=== PATIENT | female | born 1965 | race Caucasian/White ===

== ENCOUNTER → 2017-08-15 | Outpatient (CLI) | payer OTHER | LOC: M LRY 16:18 | DX: R10.31 Right lower quadrant pain (principal) | CPT/HCPCS: 74018; 87186 ==

== ENCOUNTER → 2017-08-15 | Outpatient (REF) | payer OTHER | LOC: M SFHCLERA 16:43 | DX: N30.01 Acute cystitis with hematuria (principal) ==

== ENCOUNTER → 2017-08-25 | Outpatient (REF) | payer OTHER ==
[2017-08-25 18:47] LABS: AMORPHOUS SEDIMENT MODERATE (NEGATIVE); APPEARANCE, URINE HAZY (CLEAR); BACTERIA, URINE AUTO NEGATIVE (NEGATIVE); BILIRUBIN, URINE AUTO NEGATIVE (NEGATIVE); BLOOD, URINE BLOOD NEGATIVE (NEGATIVE); COLOR, URINE YELLOW (YELLOW); GLUCOSE, URINE (UA) AUTO NEGATIVE (NEGATIVE); KETONE, URINE AUTO NEGATIVE (NEGATIVE); LEUKOCYTE ESTERASE, URINE AUTO 1+ (NEGATIVE); NITRITE, URINE AUTO NEGATIVE (NEGATIVE); PROTEIN, URINE AUTO NEGATIVE (NEGATIVE); RBC, URINE AUTO 2 /HPF (0-3); SPECIFIC GRAVITY URINE AUTO 1.005 (1.002-1.035); SQUAMOUS EPITHELIAL CELL UR AU 4 /HPF (0-6); UROBILINOGEN, URINE AUTO 0.2 mg/dL (0.0-2.0); WBC, URINE AUTO 3 /HPF (0-3)
== END ==
LOC: M LAB REF 16:35
DX: Z87.440 Personal history of urinary (tract) infections (principal)

== ENCOUNTER 2017-10-12 10:21 | Day surgery (SDC) | payer OTHER ==
[2017-10-12] MEDS: NS 1,000 ML IV (10:45)
[2017-10-12] MEDS ORDERED: PROPOFOL 200 MG/20 ML VIAL As Ordered ×2 (12:25)
== END 2017-10-12 13:15 | disposition home or self-care (01) ==
LOC: M OPP 10:21
DX: Z12.11 Encounter for screening for malignant neoplasm of colon (principal); K64.1 Second degree hemorrhoids; K57.30 Diverticulosis of large intestine without perforation or abscess without bleeding; K21.9 Gastro-esophageal reflux disease without esophagitis; D64.9 Anemia, unspecified; E78.5 Hyperlipidemia, unspecified; E03.9 Hypothyroidism, unspecified; F41.9 Anxiety disorder, unspecified; I10 Essential (primary) hypertension; R00.8 Other abnormalities of heart beat; Z79.899 Other long term (current) drug therapy; Z88.8 Allergy status to other drugs, medicaments and biological substances; Z91.013 Allergy to seafood; Z98.51 Tubal ligation status; Z87.891 Personal history of nicotine dependence
CPT/HCPCS: 45378

== ENCOUNTER → 2017-10-26 | Outpatient (CLI) | payer OTHER | LOC: M SLEEP 19:36 | DX: G47.30 Sleep apnea, unspecified (principal) | CPT/HCPCS: 95810 ==

== ENCOUNTER → 2018-11-28 | Outpatient (CLI) | payer OTHER ==
[~2018-11-28] MED LIST: BIOT10008 PO; CRAN400C PO; CYAN100049 PO; DRIS50003 PO; FERR325T82 PO; IRBE150T12 PO; LEVO100T5 PO; MULT1TAB10 PO; OMEP1CAP73 PO; WELLTAB38 PO; ZETI10TA16 PO
--- NOTE | 2018-11-28 14:06 | REP ---
CT of the maxillofacial bones without contrast Indication: Headache. Comparison: None Technique: Axial CT of the maxillofacial bones were performed without contrast. Findings: There are bilateral agger nasi cells and a small infraorbital ethmoid air cell on the left. There is variant anatomy of the anterior ethmoidal canals. Frontal sinuses: Clear bilaterally. Ethmoid air cells: Clear bilaterally. Sphenoid sinuses: Clear bilaterally. The sphenoid sinus septum inserts on the left. Maxillary sinuses: Clear bilaterally. The ostiomeatal units appear narrowed bilaterally by variant ethmoid air cells. There is no mucosal thickening. Nasal passages and septum: Normal appearance of the nasal turbinates. The nasal septum is midline. Note is made of nasal jewelry. Mastoid air cells: Clear bilaterally. The cribriform plate and fovea ethmoidalis are intact. Impression: There are bilateral agger nasi cells and a small infraorbital ethmoid air cell on the left. There is variant anatomy of the anterior ethmoidal canals. The ostiomeatal units appear narrowed bilaterally by variant ethmoid air cells. No mucosal thickening within the sinuses. No opacification of the mastoid air cells. Electronically Signed by Sandra Rodriguez MD 11/28/2018 01:57 P
== END ==
LOC: M RAD 12:28
PROVIDERS: ATTEND Otolaryngology
DX: R51 Headache (principal)